=== PATIENT | male | born 1985 | race American Indian/Alaskan Native ===

== ENCOUNTER 2018-01-22 12:00 | Emergency (ER) | payer SELFPAY ==
[2018-01-22 12:10] VITALS: BP 155/91
[2018-01-22] MEDS ORDERED: XYLOCAINE 1% MPF 5 mL INFILTRATI ONE (13:59)
--- NOTE | 2018-01-22 14:03 | Emergency Department Report ---
ED Laceration HPI - HPI Chief Complaint: Laceration/Recheck/Suture Stated Complaint: LAC.TO UPPER LIP Time Seen by Provider: 01/22/18 13:59 Occurred When: Today Location: Head Severity: mild Tetanus Status: Up to Date Laceration Symptoms: Yes Pain (minimal), No Foreign Body Sensation, No Numbness , No Weakness Other History: Pt was playing with his dog when the dog scratched his lip. Dog UTD on all shots. Pt up to date on tetanus. ED Review of Systems ROS: Stated complaint: LAC.TO UPPER LIP Other details as noted in HPI Comment: All other systems reviewed and negative Constitutional: denies: chills, fever Eyes: denies: eye pain, eye discharge, vision change ENT: denies: ear pain, throat pain Respiratory: denies: cough, shortness of breath, wheezing Cardiovascular: denies: chest pain, palpitations Endocrine: no symptoms reported Gastrointestinal: denies: abdominal pain, nausea, diarrhea Genitourinary: denies: urgency, dysuria Musculoskeletal: denies: back pain, joint swelling, arthralgia Skin: denies: rash, lesions Neurological: denies: headache, weakness, paresthesias Psychiatric: denies: anxiety, depression Hematological/Lymphatic: denies: easy bleeding, easy bruising ED Past Medical Hx - Past Medical History Hx Hypertension: Yes Hx GERD: Yes Additional medical history: back pain - Surgical History Past Surgical History?: No - Social History Smoking Status: Never Smoker Substance Use Type: Alcohol - Medications Home Medications: Home Medications Medication Instructions Recorded Confirmed Last Taken Type Amoxicillin/K Clav Tab [Augmentin 1 tab PO Q12HR #20 tab 01/22/18 Unknown Rx 875 mg] Laceration Physical Exam - Exam General: Vital signs noted. No distress. Alert and acting appropriately. Wound Length (cm): 2 Laceration Location: Head (upper lip, left corner, crosses [place] border) Laceration Exam: Yes Normal Distal CMS, No Foreign Body, No Exposed Tendon, Vessel, or Nerve, No Tendon Injury ED Course Vital Signs 01/22/18 12:06 Temperature 97.7 F Pulse Rate 100 H Respiratory 16 Rate Blood Pressure 155/91 O2 Sat by Pulse 99 Oximetry - Laceration /Wound Repair Left Upper Anterior Wound Location: mouth (upper lip) Wound Length (cm): 2 Wound's Depth, Shape: superficial, linear Wound Explored: clean Irrigated w/ Saline (ccs): 100 Betadine Prep?: Yes Anesthesia: 1% Lidocaine Volume Anesthetic (ccs): 2 Wound Debrided: minimal Wound Repaired With: sutures Suture Size/Type: 5:0, proline Number of Sutures: 6 Layer Closure?: No Sterile Dressing Applied?: No Progress: tolerated well. vermil[place] border appears well aligned. ED Medical Decision Making - Medical Decision Making pt presents with small upper lip lac, wound repaired, abx prophylaxis given, pt will follow up for suture removal in 5 days. - Differential Diagnosis laceration Critical care attestation.: If time is entered above; I have spent that time in minutes in the direct care of this critically ill patient, excluding procedure time. ED Disposition Clinical Impression: Laceration of lip Qualifiers: Encounter type: initial encounter Qualified Code(s): S01.511A - Laceration without foreign body of lip, initial encounter Disposition: DC- TO HOME OR SELFCARE Is pt being admited?: No Condition: Good Instructions: Suture Care (ED), Laceration (ED) Prescriptions: Amoxicillin/K Clav Tab [Augmentin 875 mg] 1 tab PO Q12HR #20 tab Referrals: PRIMARY CARE, [Primary Care Provider] - 3-5 Days (5 days, suture removal) Time of Disposition: 14:39
== END 2018-01-22 14:50 | disposition home or self-care (01) ==
LOC: ED 12:00
DX: S01.511A Laceration without foreign body of lip, initial encounter (principal); I10 Essential (primary) hypertension; K21.9 Gastro-esophageal reflux disease without esophagitis; W54.0XXA Bitten by dog, initial encounter; Y93.89 Activity, other specified; Y92.89 Other specified places as the place of occurrence of the external cause; Y99.8 Other external cause status
CPT/HCPCS: 99282